=== PATIENT | male | born 1990 | race Caucasian/White ===

== ENCOUNTER 2019-12-01 11:10 | Emergency (ER) | payer OTHER ==
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
== END 2019-12-01 13:10 | disposition home or self-care (01) ==
LOC: JD.ED 11:10
DX: Z77.21 Contact with and (suspected) exposure to potentially hazardous body fluids (principal)
CPT/HCPCS: 36415; 86803; 87340; 99283; G0433